=== PATIENT | female | born 1995 | race African-American/Black ===

== ENCOUNTER 2019-05-29 09:28 | Outpatient (CLI) | payer MEDICAID, SELFPAY | END 2019-05-29 09:29 | disposition home or self-care (01) | LOC: ANHSURGERY 09:34 | PROVIDERS: Visit Provider Obstetrics & Gynecology | DX: R10.2 Pelvic and perineal pain (principal) | CPT/HCPCS: 36415; 86850; 86900; 86901 ==

== ENCOUNTER 2019-06-02 00:53 | Day surgery (SDC) | payer OTHER, MEDICAID, SELFPAY ==
[2019-05-25 16:55] VITALS: BMI 26.4
--- NOTE | 2019-05-31 07:53 | PM.IMHP ---
H&P: HPI History of Present Illness Chief complaint: Pelvic Pain Narrative: Alla Gomez is a 24 year old female Who is admitted for diagnostic laparoscopy. She has pain and chronic discomfort. She had negative STD testing and had an ultrasound which appears unremarkable short of free fluid. Her pain has been unrelenting. Suppression of her ovaries have been successful. Risks and benefits of this procedure reviewed Review of Systems Review of Systems: All systems reviewed & are unremarkable except as noted in HPI and below PMFSH Past Medical History Medical History Healthy female Surgical History Surgical History No history of previous surgery Social History Social History Smoking status: Current every day smoker Gender identity (if verbalized by the patient): Female Meds Home Medications and Allergies Home Medications Medication Instructions Recorded Confirmed Type norethindrone ac-eth estradiol 1 tablet PO DAILY 05/25/19 05/25/19 History Allergies Allergy/AdvReac Type Severity Reaction Status Date / Time No Known Allergies Allergy Uncoded 02/14/19 10:23 Exam Const: General: no acute distress Eyes: General: appearance normal, both eyes and all related structures Neck: Neck: supple and no JVD Thyroid: thyroid normal Resp: Effort & Inspection: normal respiratory effort Auscultation: clear to auscultation bilaterally Cardio: Rate: regular rate Rhythm: regular rhythm GI: Inspection: non-distended GI Palp: Yes Soft to palpation, No Tenderness to palpation present (GI) and No Guarding due to palpation present (GI) Auscultation: normal bowel sounds : General: Yes bladder normal to palpation External Female Exam: normal external appearance Speculum Exam - Vagina: normal vaginal discharge and No vaginal bleeding Speculum Exam - Cervix: nontender Bimanual exam- vagina & uterus: bladder normal to palpation and No Cervical tenderness present OB/external & speculum: No vaginal bleeding Skin: General skin exam: no rashes or lesions noted Extrem: General: normal to inspection and no edema Psych: Mental Status: mental status grossly normal Affect: normal affect Assessment and Plan Additional Plan impression: Pelvic pain plan:laparoscopy
[2019-06-02] VITALS (8 sets, daily range): BP systolic 112–132; BP diastolic 74–88; PULSE 50–99; RESP 12–18; TEMP 36.2–36.4; O2SAT 99–100
--- NOTE | 2019-06-02 06:59 | WPDHPUPDATE1 ---
History and Physical Update Update Date/Time: 06/02/19 06:59 History and Physical has been reviewed, including an updated exam of the patient. There are NO changes in the patient's condition. Risks, benefits, and alternatives have been discussed and questions answered. Patient agrees to proceed with procedure.
--- NOTE | 2019-06-02 07:34 | WPDANESEPPF ---
Anes - Initial Pre Proc Eval Procedure: Operation Date: 06/02/19 09:00 Proposed Procedures p Diagnostic Laparoscopy - Billy Martinez MD Date/Time: 06/02/19 07:34 Surgeon: Billy Martinez MD Pre Op Diagnosis: Pelvic Pain Patient Data Age: 24 Gender: F Height: 1.52 m Weight: 61.24 kg Allergies Allergy/AdvReac Type Severity Reaction Status Date / Time No Known Allergies Allergy Uncoded 02/14/19 10:23 Home Medications Medication Instructions Recorded Confirmed Type norethindrone ac-eth estradiol 1 tablet PO DAILY 05/25/19 05/25/19 History hydrocodone-acetaminophen [[place]] 1 tablet PO Q4H PRN #30 tablet 06/02/19 Rx Patient hx anesthesia problems: none Family hx anesthesia problems: none [facility] Past Medical History Medical History Healthy female Surgical History Surgical History No history of previous surgery Social History Social History (Updated 06/02/19 @ 07:34 by Macho Pablo DO) Substance use type: marijuana Gender identity (if verbalized by the patient): Female Anes - Eval Final PreProcedure Day of Procedure 06/02/19 07:34 Patient weight: overweight Heart: regular rate and rhythm Lungs: clear to auscultation and normal air movement Airway: Mallampati scale class II Neurological: alert and oriented Last oral intake: >/= 8 hours ASA classification: II Emergent: no Anesthetic plan: proceed Anesthesia type and monitoring: general ETT and standard monitoring Informed Consent: The patient's anesthetic plan and its attendant risks and benefits were discussed with the patient/family/POA. Questions were solicited and answers provided to the satisfaction of the patient/family/POA.
[2019-06-02] MEDS: LACTATED RINGERS 1,000 ML 30 ML IV CONT ×2 (08:00→09:27)
[2019-06-02] MEDS: KETOROLAC 30 MG/ML VIAL (*BKC) IV PUSH (09:07)
--- NOTE | 2019-06-02 09:10 | PM.PROC ---
Procedure Note - Detailed Date of procedure: 06/02/19 Pre-op diagnosis: Pelvic Pain Surgeon: Billy Martinez MD Postop diagnosis: Pelvic pain/endometriosis Procedure: Laparoscopy destruction of endometriosis Anesthesia: General endotracheal E EBL: 5cc Complications: None Findings: Powder burn endometriosis along the left uterus sacral ligament. Normal-appearing ovaries and tubes. Normal-appearing uterus. Normal-appearing appendix and gallbladder. Description of procedure: The patient was prepped draped in the normal sterile fashion placed in the dorsal lithotomy position. Under excellent general endotracheal anesthesia weighted speculum was placed in a posterior fornix of vagina. Anterior lip of the cervix was grasped with a single-tooth tenaculum. The Egan's cannula was inserted to the cervix and attached to the single-tooth tenaculum. This was to be used later for uterine manipulation. The bladder was emptied of clear urine. The weighted speculum was removed. The gloves were changed. An infraumbilical incision made. The abdomen was entered under direct visualization and no injury seen. The patient placed in Trendelenburg and a suprapubic incision made. The 5mm trocar was advanced under direct visualization assuring no injury. [id number] of serosanguineous fluid was seen in cul-de-sac. This was suction irrigated. Small area of powder burn endometriosis was seen along the left uterosacral ligament. The ovaries tubes and uterus appeared within normal limits. The appendix and gallbladder appeared normal. Irrigation was undertaken to clear. No other abnormalities were seen. The gas was removed from the abdomen. The trocars removed from the abdomen. The incisions closed with 4 O Monocryl glue. Instruments removed from the vagina. The patient was awakened. She went to recovery in satisfactory condition. All sponge, needle, instrument counts were correct. There were no immediate complications
== END 2019-06-02 11:40 | disposition home or self-care (01) ==
PROVIDERS: Visit Provider Obstetrics & Gynecology
PROC: (CPT 49320; principal; 2019-06-02 09:00)
DX: N80.3 Endometriosis of pelvic peritoneum (principal); R10.2 Pelvic and perineal pain; F12.90 Cannabis use, unspecified, uncomplicated
CPT/HCPCS: 58662; A9270; J0330; J1100; J1885; J2250; J2405; J2704; J3010; J7120

== ENCOUNTER 2023-10-04 10:16 | Outpatient (CLI) | payer MEDICAID, SELFPAY ==
[2023-10-04 11:11] LABS: Hepatitis B Surface Antigen Negative (Negative)
[2023-10-04 11:17] LABS: HAV RESULT Negative (Negative); Hepatitis B Core IgM Result Negative (Negative)
[2023-10-04 11:20] LABS: HIV 1/2 Ab P24 Ag Result Negative (Negative)
[2023-10-04 11:28] LABS: Hepatitis C Virus Antibody Negative (Negative)
[2023-10-04 14:42] LABS: Rapid Plasma Reagin Non-Reactive (NonReactive)
== END 2023-10-04 10:17 | disposition home or self-care (01) ==
LOC: ANHLAB 10:17
PROVIDERS: Visit Provider Student in an Organized Health Care Education/Training Program
DX: Z11.3 Encounter for screening for infections with a predominantly sexual mode of transmission (principal)
CPT/HCPCS: 36415; 80074; 86592; 86703; G0432